=== PATIENT | male | born 1975 | race Caucasian/White ===

== ENCOUNTER 2020-12-29 16:20 | Emergency (ER) | payer OTHER, SELFPAY ==
--- OUTSIDE RECORDS SUMMARY | 2020-12-29 16:23 | XMS REPORT | Continuity of Care Document ---
:[address] [facility] t Address [address] [place] [address] Care Team Providers Name Role Phone Chema Pugh DO Attending Clinician Carter ANDREA Attending Clinician Problems This patient has no known problems. Allergies, Adverse Reactions, Alerts This patient has no known allergies or adverse reactions. Medications This patient has no known medications. Procedures This patient has no known procedures. Encounters Start End Encounter Admission Attending Care Care Encounter Source Date/Time Date/Time Type Type Clinicians Facility Department ID 2020-08-01 2020-08-01 Patient Keaton [facility] [id number] 00:00:00 00:00:00 Outreach [facility] [id number] Chema [facility] [id number] [place] [id number] 2020-06-20 2020-06-20 [facility] [id number] 15:34:16 23:59:00 Encounter [place] [id number] [place] [id number] [place] [id number] 2020-06-20 2020-06-20 Office [facility] [id number] 08:34:55 09:09:37 Visit [place] [id number] [place] [id number] [place] [id number] [facility] [address] Building Results This patient has no known results.
[2020-12-29] MEDS ORDERED: NA CHLORIDE 0.9% 1,000 ML ONE ×2 (19:51→22:38)
[2020-12-29] MEDS ORDERED: HYDROCODONE/CHLORPHEN 5 ML/OSYR ONE (19:51)
[2020-12-29 19:52] LABS: Absolute Lymphocytes (CBC) 1.7 K/uL (0.7-4.9); Basophils % 0.7 % (0-1.3); Hematocrit 56.8 % (39.6-49.0); Lymphocytes % 38.7 % (15.3-44.8); MPV 7.9 fL (7.6-11.3); RBC Red Blood Cell Count 5.95 M/uL (4.33-5.43)
[2020-12-29] MEDS ORDERED: KETOROLAC 30 MG/ML INJ ONE (19:53)
--- NOTE | 2020-12-29 20:31 | RAD REPORT ---
EXAM DESCRIPTION: RAD - Chest Single View - 12/29/2020 8:05 pm CLINICAL HISTORY: Cough;Chest pain COMPARISON: <Comparisons> FINDINGS: No evidence of edema or pneumonia. The heart size is within normal limits.No acute osseous abnormality. No significant pleural effusions or pneumothorax. IMPRESSION: No acute cardiopulmonary disease.
[2020-12-29 20:49] LABS: Protime INR 1.05
[2020-12-29 21:06] LABS: ALT/SGPT 34 U/L (12-78); Albumin 3.5 g/dL (3.4-5.0); Alkaline Phosphatase 49 U/L (45-117); BUN Blood Urea Nitrogen 10 mg/dL (7-18); Bicarbonate 29 mmol/L (21-32); Bilirubin Direct 0.1 mg/dL (0-0.2); Bilirubin Total 0.5 mg/dL (0.2-1.0); Creatine Phosphokinase 119 U/L (39-308); Glucose Level 90 mg/dL (74-106); NT PRO-BNP 12 pg/mL (<125); Protein, Total 6.8 g/dL (6.4-8.2); Sodium Level 138 mmol/L (136-145); Troponin (Emerg Dept Use Only) < 0.02 ng/mL (0.0-0.045)
[2020-12-29 21:09] LABS: C-Reactive Protein < 2.90 mg/L (<3.00)
[2020-12-29 21:10] LABS: AST/SGOT 13 U/L (15-37); Potassium 4.3 mmol/L (3.5-5.1)
--- NOTE | 2020-12-29 21:46 | RAD REPORT ---
EXAM DESCRIPTION: CT - Chest For Pe Angio - 12/29/2020 9:39 pm CLINICAL HISTORY: Chest pain;SOB COMPARISON: Chest Single View dated 12/29/2020 FINDINGS: Chest Wall: No suspicious thyroid nodules or pathologic lymphadenopathy. Lungs: Mild scattered nodular and ground-glass opacities. Pleura: No significant effusions or pneumothorax. Mediastinum/liya: No pathologic lymphadenopathy. Pulmonary arteries/Aorta: No filling defect identified. No aortic aneurysm. Heart: No significant pericardial effusion. Normal heart size. Upper abdomen: No acute abnormality. Cholecystectomy. Bones: No acute abnormality. IMPRESSION: Negative for pulmonary embolism. Mild scattered ground-glass opacities concerning for mu ltifocal pneumonia, including Covid-19.
[2020-12-29 21:47] LABS: Ferritin 92.7 ng/mL (26-388)
[2020-12-29] MEDS ORDERED: NA CHLORIDE 0.9% 250 ML ONE (22:38)
[2020-12-29] MEDS ORDERED: CASIRIVIMAB/IMDEVIMAB 10 ML VIAL ONE (22:39)
[2020-12-29] MEDS ORDERED: NA CHLORIDE 0.9% 50 ML ONE (23:43)
--- NOTE | 2020-12-30 00:42 | EDPHYS ---
Physician Documentation [facility] Name: Hector Yeung Jr Age: 45 yrs Sex: Male : 1975 Arrival Date: 12/29/2020 Time: 16:24 Bed 14 Private MD: Denis Vuong S ED Physician Kp Morris HPI: 12/29 19:15 This 45 yrs old Male presents to ER via Ambulatory with complaints of COVID+, cp Breathing Difficulty. 19:15 The patient has shortness of breath at rest. Onset: The symptoms/episode began/occurred cp gradually. 19:15 Associated signs and symptoms: Pertinent positives: chest pain, non-productive cough, cp Pertinent negatives: diaphoresis, fever, vomiting. 19:15 Patient reports symptoms started 6 days ago and that he tested positive for COVID-19 on cp 12-24-2020. Patient reports he took prescribed antibiotic and cough capsules but having increased shortness of breath. Historical: - Allergies: 16:59 Morphine; ss - Home Meds: 18:45 None [Active]; ss - PMHx: 18:45 None; ss - PSHx: 16:59 L ankle; L elbow; Appendectomy; Vasectomy; carpal tunnel; ss - Immunization history:: Client reports having NOT received the Covid vaccine. - Social history:: Smoking status: Patient denies any tobacco usage or history of. ROS: 19:20 Constitutional: Positive for body aches, Negative for chills, fever, poor PO intake. cp 19:20 Eyes: Negative for injury, pain, redness, and discharge. cp 19:20 ENT: Negative for ear pain, sore throat, difficulty swallowing, difficulty handling secretions. 19:20 Cardiovascular: Positive for chest pain, with cough, Negative for edema, palpitations. 19:20 Respiratory: Positive for cough, "sounds productive", shortness of breath, at rest. Negative for wheezing. 19:20 Abdomen/GI: Negative for abdominal pain, vomiting, diarrhea, constipation. 19:20 Back: Positive for pain at rest, pain with movement. 19:20 Skin: Negative for rash. 19:20 Neuro: Negative for altered mental status, dizziness, headache, syncope, weakness. 19:20 All other systems are negative. Exam: 19:25 Constitutional: The patient appears in no acute distress, alert, awake, cp non-diaphoretic, non-toxic, well developed, well nourished, uncomfortable. 19:25 Head/Face: Normocephalic, atraumatic. cp 19:25 Eyes: Periorbital structures: appear normal, Conjunctiva: normal, no exudate, no cp injection, Sclera: no appreciated abnormality, Lids and lashes: appear normal, bilaterally. 19:25 ENT: External ear(s): are unremarkable, Nose: is normal, Mouth: Lips: moist, Oral mucosa: pink and intact, moist, Posterior pharynx: is normal, airway is patent, no erythema, no exudate. 19:25 Neck: ROM/movement: is normal, is supple, without pain, no range of motions limitations. 19:25 Chest/axilla: Inspection: normal, Palpation: is normal, no crepitus, no tenderness. 19:25 Cardiovascular: Rate: tachycardic, Rhythm: regular, Edema: is not appreciated, JVD: is not appreciated. 19:25 Respiratory: the patient does not display signs of respiratory distress, Respirations: labored breathing, is not present, shallow respirations, that is mild, Breath sounds: bronchial sounds, that are mild, are heard diffusely, decreased breath sounds, are not appreciated, stridor, is not appreciated, wheezing: is not appreciated. 19:25 Abdomen/GI: Inspection: abdomen appears normal, Palpation: abdomen is soft and non-tender, in all quadrants. 19:25 Back: pain, that is moderate, ROM is normal. 19:25 Skin: no rash present. 19:25 Neuro: Orientation: to person, place \\T\\ time. Mentation: is normal, Cerebellar function: is grossly normal, Motor: moves all fours, strength is normal, Sensation: is normal. 20:27 ECG was reviewed by the Attending Physician. cp Vital Signs: 16:56 BP 119 / 82; Pulse 108; Resp 19; Temp 98.9(TE); Pulse Ox 98% on R/A; Weight 97.07 kg; ss Height 5 ft. 9 in. (175.26 cm); Pain 8/10; 20:32 BP 91 / 76; Pulse 85; Resp 18; Pulse Ox 96% on R/A; lp1 22:45 BP 101 / 74; Pulse 66; Resp 15; Temp 98.1(O); Pulse Ox 98% on R/A; lp1 23:00 BP 104 / 75; Pulse 65; Resp 15; Pulse Ox 97% on R/A; lp1 23:30 BP 125 / 97; Pulse 83; Resp 16; Pulse Ox 98% on R/A; lp1 23:45 BP 122 / 91; Pulse 63; Resp 16; Pulse Ox 100% on R/A; lp1 12/30 00:00 BP 129 / 87; Pulse 70; Resp 17; Pulse Ox 100% on R/A; lp1 00:15 BP 132 / 98; Pulse 70; Resp 18; Pulse Ox 100% on R/A; lp1 00:30 BP 135 / 96; Pulse 70; Resp 13; Pulse Ox 100% on R/A; lp1 00:45 BP 138 / 79; Pulse 71; Resp 20; Pulse Ox 98% on R/A; lp1 12/29 16:56 Body Mass Index 31.60 (97.07 kg, 175.26 cm) ss MDM: 12/29 18:48 Patient medically screened. cp 20:00 Differential diagnosis: pneumonia, Sepsis Unstable Angina respiratory failure, cp pulmonary embolism. 12/30 00:40 Data reviewed: vital signs, nurses notes, lab test result(s), radiologic studies, CT cp scan, plain films, and as a result, I will discharge patient. 00:40 Test interpretation: by ED physician or midlevel provider: ECG, plain radiologic cp studies. 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 12/29 19:11 Order name: Basic Metabolic Panel cp 12/29 19:11 Order name: CBC with Diff cp 12/29 19:11 Order name: LFT's cp 12/29 19:11 Order name: Magnesium cp 12/29 19:11 Order name: NT PRO-BNP cp 12/29 19:11 Order name: PT-INR; Complete Time: 21:46 cp 12/29 19:11 Order name: Troponin (emerg Dept Use Only) cp 19:11 Order name: CK cp / 19:11 Order name: CRP cp / 21:46 Interpretation: Within normal limits: C-REACTIVE PROT < 2.90. cp / 19:11 Order name: Ferritin cp / 19:11 Order name: D-Dimer; Complete Time: 21:46 cp 08/ 21:46 Interpretation: Abnormal: D-DIMER 535. cp / 19:12 Order name: Basic Metabolic Panel EDMS 12/29 21:46 Interpretation: Normal except: CRE 1.49; GFR 51. cp / 19:12 Order name: CBC with Automated Diff; Complete Time: 20:54 EDMS 12/29 21:47 Interpretation: Normal except: RBC 5.95; HGB 19.1; HCT 56.8. cp / 19:12 Order name: Liver (Hepatic) Function EDMA 12/29 19:11 Order name: XRAY Chest (1 view); Complete Time: 20:54 cp 12/29 19:11 Order name: EKG; Complete Time: 19:12 cp 12/29 19:11 Order name: Cardiac monitoring; Complete Time: 19:45 cp / 19:11 Order name: EKG - Nurse/Tech; Complete Time: 20:32 cp 12/29 19:11 Order name: IV Saline Lock; Complete Time: 19:45 cp / 19:11 Order name: Labs collected and sent; Complete Time: 19:45 cp 12/29 19:11 Order name: O2 Per Protocol; Complete Time: 19:45 cp 12/29 19:11 Order name: O2 Sat Monitoring; Complete Time: 19:45 cp 12/29 20:55 Order name: CT Chest For PE Angio; Complete Time: 21:47 cp 12/29 21:48 Interpretation: Report reviewed. cp EC/15 20:27 Rate is 76 beats/min. Rhythm is regular. ND interval is normal. QRS interval is normal. cp QT interval is normal. T waves are Inverted in lead aVR. Interpreted by me. Reviewed by me. Administered Medications: 19:44 Drug: NS 0.9% 1000 ml Route: IV; Rate: 1000 ml/hr; Site: right antecubital; lp1 21:30 Follow up: IV Status: Completed infusion; IV Intake: 1000ml lp1 19:44 Drug: Tussionex Pennkinetic ER (chlorpheniramine-hydrocodone) Suspension 5 ml Route: PO;lp1 20:32 Follow up: Response: No adverse reaction lp1 19:45 Drug: Ketorolac 15 mg Route: IVP; Site: right antecubital; lp1 20:32 Follow up: Response: Marked relief of symptoms; Pain is decreased lp1 22:15 Drug: NS 0.9% 1000 ml Route: IV; Rate: 1 bolus; Site: right antecubital; lp1 12/30 01:05 Follow up: IV Status: Completed infusion; IV Intake: 1000ml lp1 12/29 22:45 Drug: REGEN-COV Dose Pack 120 mg/mL-120 mg/mL (EUA) 260 ml Route: IV; Rate: ml/hr; lp1 Site: right antecubital; 12/30 00:00 Follow up: IV Status: Completed infusion; IV Intake: 250ml lp1 Disposition: 00:50 Chart complete. cp Disposition Summary: 12/30/20 00:41 Discharge Ordered Location: Home cp Problem: new cp Symptoms: have improved cp Condition: Stable cp Diagnosis - Other viral pneumonia cp - SARS-associated coronavirus as the cause of diseases classified elsewhere cp Followup: cp - With: - When: 2 - 3 days - Reason: Recheck today's complaints Discharge Instructions: - Discharge Summary Sheet cp - Form - Excuse from Work, School, or Physical Activity cp - COVID-19 cp - Things to Know about the COVID-19 Pandemic - [facility] cp - 10 Things You Can Do to Manage Your COVID-19 Symptoms at Home - [facility] cp - COVID-19: Quarantine vs. Isolation - [facility] cp - Prevent the Spread of COVID-19 if You Are Sick - [facility] cp Forms: - Medication Reconciliation Form cp - Thank You Letter cp - Antibiotic Education cp - Prescription Opioid Use cp Prescriptions: - Ibuprofen 800 mg Oral Tablet - take 1 tablet by ORAL route every 8 hours As needed take with food; 30 tablet; cp Refills: 0, Product Selection Permitted - Tessalon Perles 100 mg Oral Capsule - take 2 capsule by ORAL route every 8 hours As needed; 30 capsule; Refills: 0, cp Product Selection Permitted Signatures: Dispatcher [employer] Kisha Cuello RN RN Cherry Chauhan RN RN lp1 Alvin Godinez PA PA cp Corrections: (The following items were deleted from the chart) 12/29 16:59 16:59 Allergies: No Known Allergies; ss ss
--- NOTE | 2020-12-30 00:42 | ER ---
Nurse's Notes [facility] Name: Hector Yeung Jr Age: 45 yrs Sex: Male : 1975 Arrival Date: 12/29/2020 Time: 16:24 Bed 14 Private MD: Denis Vuong S Diagnosis: Other viral pneumonia;SARS-associated coronavirus as the cause of diseases classified elsewhere Presentation: 12/29 16:56 Chief complaint: Patient states: COVID + on 12/24. Pt reports his body aches are getting ss worse. Also c/o cough/ sob. Coronavirus screen: Client presents with at least one sign or symptom that may indicate coronavirus-19. Standard/surgical mask placed on the client. Provider contacted for isolation considerations. Ebola Screen: Patient denies exposure to infectious person. Patient denies travel to an Ebola-affected area in the 21 days before illness onset. Initial Sepsis Screen: Does the patient meet any 2 criteria? No. Patient's initial sepsis screen is negative. Does the patient have a suspected source of infection? No. Patient's initial sepsis screen is negative. Risk Assessment: Do you want to hurt yourself or someone else? Patient reports no desire to harm self or others. Onset of symptoms was December 24, 1999. 16:56 Method Of Arrival: Ambulatory ss 16:56 Acuity: KENZIE 4 ss Historical: - Allergies: 16:59 Morphine; ss - Home Meds: 18:45 None [Active]; ss - PMHx: 18:45 None; ss - PSHx: 16:59 L ankle; L elbow; Appendectomy; Vasectomy; carpal tunnel; ss - Immunization history:: Client reports having NOT received the Covid vaccine. - Social history:: Smoking status: Patient denies any tobacco usage or history of. Screenin:45 Abuse screen: Denies threats or abuse. Denies injuries from another. Nutritional ss screening: No deficits noted. Tuberculosis screening: Never had TB. Fall Risk None identified. Assessment: 16:56 General: Appears uncomfortable, ill, Behavior is calm, cooperative, Reports chills for ss >3 days, fever for > 3 days, feeling ill for > 3 days, fatigue for >3 days. Pain: Complains of pain in generalized body aches Pain currently is 8 out of 10 on a pain scale. Quality of pain is described as aching, Pain began 1 week ago Is continuous. Neuro: Level of Consciousness is awake, alert, obeys commands, Oriented to person, place, time, situation. Cardiovascular: Rhythm is sinus tachycardia. Respiratory: Airway is patent Respiratory effort is even, unlabored, Respiratory pattern is regular, symmetrical, Breath sounds are clear bilaterally. Respiratory: Reports shortness of breath on exertion cough that is dry, hacking, persistent. GI: No signs and/or symptoms were reported involving the gastrointestinal system. : No signs and/or symptoms were reported regarding the genitourinary system. EENT: Nares are clear Oral mucosa is moist. Throat is clear. Derm: Skin is intact, is healthy with good turgor, Skin is pink, warm \T\ dry. normal. Musculoskeletal: Circulation, motion, and sensation intact. Range of motion: intact in all extremities, Swelling absent. 17:05 Reassessment: asked Dr. Morris if XRAY of chest is necessary at this time. Dr. Morris ss states not to order XRAY now and to wait for patient to be seen. Pt placed in lobby and notified of wait time. 18:45 Reassessment: No changes from previously documented assessment. Pt placed in Diagnostic ss waiting lounge awaiting to be seen by provider. 19:46 General: Appears ill, Behavior is appropriate for age. Pain: Complains of pain in back lp1 Quality of pain is described as aching. Neuro: Level of Consciousness is awake, alert, obeys commands, Oriented to person, place, time, situation. Cardiovascular: Patient's skin is warm and dry. Respiratory: Reports shortness of breath cough that is persistent Respiratory effort is even, shallow, Breath sounds are clear bilaterally. Onset: The symptoms/episode began/occurred gradually, the patient has mild shortness of breath. GI: Patient currently denies nausea, vomiting. Derm: Skin is intact, Skin is dry, Skin is flushed. Musculoskeletal: No deficits noted. 22:15 Reassessment: Patient is alert, oriented x 3, equal unlabored respirations, skin lp1 warm/dry/pink. patient given Fact sheet for [employer], demonstrates understanding and agrees. 12/30 00:00 Reassessment: Patient is alert, oriented x 3, equal unlabored respirations, skin lp1 warm/dry/pink. Infusion completed; patient being monitored for 1 hour post infusion;. 01:03 Reassessment: Patient appears in no apparent distress at this time. Patient is alert, lp1 oriented x 3, equal unlabored respirations, skin warm/dry/pink. Patient states feeling better. Vital Signs: 12/29 16:56 BP 119 / 82; Pulse 108; Resp 19; Temp 98.9(TE); Pulse Ox 98% on R/A; Weight 97.07 kg; ss Height 5 ft. 9 in. (175.26 cm); Pain 8/10; 20:32 BP 91 / 76; Pulse 85; Resp 18; Pulse Ox 96% on R/A; lp1 22:45 BP 101 / 74; Pulse 66; Resp 15; Temp 98.1(O); Pulse Ox 98% on R/A; lp1 23:00 BP 104 / 75; Pulse 65; Resp 15; Pulse Ox 97% on R/A; lp1 23:30 BP 125 / 97; Pulse 83; Resp 16; Pulse Ox 98% on R/A; lp1 23:45 BP 122 / 91; Pulse 63; Resp 16; Pulse Ox 100% on R/A; lp1 12/30 00:00 BP 129 / 87; Pulse 70; Resp 17; Pulse Ox 100% on R/A; lp1 00:15 BP 132 / 98; Pulse 70; Resp 18; Pulse Ox 100% on R/A; lp1 00:30 BP 135 / 96; Pulse 70; Resp 13; Pulse Ox 100% on R/A; lp1 00:45 BP 138 / 79; Pulse 71; Resp 20; Pulse Ox 98% on R/A; lp1 12/29 16:56 Body Mass Index 31.60 (97.07 kg, 175.26 cm) ED Course: 12/29 16:24 Patient arrived in ED. mr 16:25 Denis Vuong MD is Private Physician. mr 16:58 Triage completed. ss 16:59 Arm band placed on right wrist. ss 18:41 Kisha Helton, AMANDA is Primary Nurse. ss 18:45 Patient has correct armband on for positive identification. ss 18:48 Alvin Godinez PA is PHCP. cp 18:48 Kp Morris MD is Attending Physician. cp 19:45 Inserted saline lock: 20 gauge in right antecubital area, using aseptic technique. lp1 Blood collected. 20:05 XRAY Chest (1 view) In Process Unspecified. EDMS 20:32 No provider procedures requiring assistance completed. lp1 21:39 CT Chest For PE Angio In Process Unspecified. EDMS 12/30 00:41 Awais Mendez MD is Referral Physician. cp 01:03 IV discontinued, No redness/swelling at site. Pressure dressing applied. lp1 Administered Medications: 12/29 19:44 Drug: NS 0.9% 1000 ml Route: IV; Rate: 1000 ml/hr; Site: right antecubital; lp1 21:30 Follow up: IV Status: Completed infusion; IV Intake: 1000ml lp1 19:44 Drug: Tussionex Pennkinetic ER (chlorpheniramine-hydrocodone) Suspension 5 ml Route: PO;lp1 20:32 Follow up: Response: No adverse reaction lp1 19:45 Drug: Ketorolac 15 mg Route: IVP; Site: right antecubital; lp1 20:32 Follow up: Response: Marked relief of symptoms; Pain is decreased lp1 22:15 Drug: NS 0.9% 1000 ml Route: IV; Rate: 1 bolus; Site: right antecubital; lp1 12/30 01:05 Follow up: IV Status: Completed infusion; IV Intake: 1000ml lp1 12/29 22:45 Drug: REGEN-COV Dose Pack 120 mg/mL-120 mg/mL (EUA) 260 ml Route: IV; Rate: ml/hr; lp1 Site: right antecubital; 12/30 00:00 Follow up: IV Status: Completed infusion; IV Intake: 250ml lp1 Intake: 12/29 21:30 IV: 1000ml; Total: 1000ml. lp1 12/30 00:00 IV: 250ml; Total: 1250ml. lp1 01:05 IV: 1000ml; Total: 2250ml. lp1 Outcome: 00:41 Discharge ordered by . cp 01:04 Discharged to home ambulatory. lp1 01:04 Condition: good 01:04 Discharge instructions given to patient, Instructed on discharge instructions, follow up and referral plans. medication usage, Demonstrated understanding of instructions, follow-up care, medications, Prescriptions given X 2. 01:05 Patient left the ED. lp1 Signatures: Dispatcher [employer] EDCayla Rangel mr DanieKisha RN RN ss Cherry Chauhan RN RN lp1 Alvin Godinez PA PA cp Corrections: (The following items were deleted from the chart) 12/29 16:59 16:59 Allergies: No Known Allergies; [facility] 19:47 19:46 Respiratory: Reports shortness of breath cough that is persistent Respiratory lp1 effort is even, shallow, Breath sounds are clear bilaterally. Onset: The symptoms/episode began/occurred gradually, lp1
[2020-12-30 01:23] VITALS: TEMP 98.1
[2020-12-30 01:38] VITALS: BP 138/79; O2SAT 98
== END 2020-12-30 01:05 | disposition home or self-care (01) ==
LOC: ER 16:20
DX: U07.1 COVID-19 (principal); J12.82 Pneumonia due to coronavirus disease 2019; Z88.5 Allergy status to narcotic agent
CPT/HCPCS: 36415; 71045; 71275; 80048; 80076; 82550; 82728; 83735; 83880; 84484; 85025; 85379; 85610; 86140; 93005; 96361; 96365; 96375; 99284; J7030; J7050; Q9967